=== PATIENT | male | born 1970 ===

== ENCOUNTER 2022-08-21 07:04 | Day surgery (SDC) | payer BC ==
[~2022-08-21] VITALS: Ht 175.3 cm; Wt 105.9 kg
[~2022-08-21 07:04] MED LIST: ATOR20
== END 2022-08-21 08:50 | disposition home or self-care (01) ==
LOC: ORSCSDS 07:04 → ORSCMMR 08:00 → ORSCSDS 08:30 → ORD 08:30 → ORSCSDS 08:50
PROVIDERS: Internal Medicine Gastroenterology
PROC: 0DBN8ZX Excision of Sigmoid Colon, Via Natural or Artificial Opening Endoscopic, Diagnostic (ICD-10-PCS; principal; 2022-08-21 08:00)
DX: Z12.11 Encounter for screening for malignant neoplasm of colon (principal); Z86.010 Personal history of colon polyps; D12.5 Benign neoplasm of sigmoid colon; K63.5 Polyp of colon; E78.00 Pure hypercholesterolemia, unspecified; Z79.899 Other long term (current) drug therapy
CPT/HCPCS: 88305; J2704; J7120